=== PATIENT | female | born 1990 | race Caucasian/White ===

== ENCOUNTER → 2018-09-17 | Outpatient (CLI) | payer OTHER ==
--- NOTE | 2018-09-17 16:32 | CT ---
EXAMINATION TYPE: CT brain wo con DATE OF EXAM: 09/17/2018 COMPARISON: NONE HISTORY: Migraine for [address] DLP:1055 mGycm. Automated Exposure Control for Dose Reduction was Utilized. TECHNIQUE: CT scan of the head is performed without contrast. FINDINGS: There is no acute intracranial hemorrhage, mass effect, or midline shift identified. No suspicious extra-axial fluid collection. The ventricles and sulci are within normal limits in size. The globes are intact. There is near complete filling of the right sphenoid sinus and mild mucosal th ickening of the left sphenoid sinus. Moderate mucosal thickening of the ethmoid sinuses is seen with extent into the left frontal recess and trace frontal sinus mucosal thickening. Trace maxillary mucos al thickening is also noted. Visualized mastoid air cells are well aerated. IMPRESSION: 1. No acute intracranial hemorrhage, mass effect, or midline shift is seen. 2. Acute pansinusitis most severe within the right sphenoid sinus with near complete opacification.
== END | disposition home or self-care (01) ==
LOC: RADCTMAIN 16:02
PROVIDERS: ATTEND Family Medicine
DX: G43.909 Migraine, unspecified, not intractable, without status migrainosus (principal)
CPT/HCPCS: 70450

== ENCOUNTER → 2019-05-12 | Outpatient (CLI) | payer OTHER ==
--- NOTE | 2019-05-12 08:59 | XR ---
EXAMINATION TYPE: XR chest 2V DATE OF EXAM: 05/12/2019 COMPARISON: NONE HISTORY: Chest pain TECHNIQUE: Frontal and lateral views of the chest are obtained. FINDINGS: There is no focal air space opacity. No evidence for pneumothorax. No pleural effusion. The cardiac silhouette size is within normal limits. The osseous structures are grossly intact. IMPRESSION: 1. No acute cardiopulmonary process.
== END ==
LOC: RADXRMAIN 08:23
PROVIDERS: ATTEND Family Medicine
DX: J18.9 Pneumonia, unspecified organism (principal)
CPT/HCPCS: 71046

== ENCOUNTER → 2019-05-12 | Outpatient (CLI) | payer OTHER ==
--- NOTE | 2019-05-12 13:04 | CT ---
EXAMINATION TYPE: CT angio chest DATE OF EXAM: 05/12/2019 COMPARISON: NONE HISTORY: Chest and back pain with shortness of breath. CT DLP: 376 mGycm. Automated Exposure Control for Dose Reduction was Utilized. CONTRAST: CTA scan of the thorax is performed with IV Contrast, patient injected with 100 mL of Isovue 370, pul monary embolism protocol. MIP Images are created on CT scanner and reviewed. FINDINGS: LUNGS: The lungs are grossly clear, there is no concerning parenchymal mass or nodule identified. T here is no pleural effusion or pneumothorax seen. The tracheobronchial tree is patent. MEDIASTINUM: There is satisfactory enhancement of the pulmonary artery and its branches, there is no CT evidence for pulmonary embolism. There are no greater than 1 cm hilar or mediastinal lymph nodes. No cardiomegaly or pericardial effusion is seen. OTHER: No additional significant abnormality is seen. IMPRESSION: Unremarkable study.
== END | disposition home or self-care (01) ==
LOC: RADCTMAIN 12:19
PROVIDERS: ATTEND Family Medicine
DX: R07.89 Other chest pain (principal)
CPT/HCPCS: 71275; Q9967

== ENCOUNTER → 2019-12-25 | Outpatient (CLI) | payer OTHER ==
--- NOTE | 2019-12-25 08:15 | US ---
EXAMINATION TYPE: US thyroid st tissue head/neck DATE OF EXAM: 12/25/2019 COMPARISON: NONE CLINICAL HISTORY: E03.8 HYPOTHYROIDISM. abn labs, GLAND SIZE: Right Lobe: 3.5 x 1.1 x 1.6 cm Overall Parenchyma: homogenous Left Lobe: 3.7 x 0.8 x 1.3 cm Overall Parenchyma: homogeneous Isthmus Thickness: 0.3 cm NODULES RIGHT: # of nodules measured on right: 0 LEFT: # of nodules measured on left: 0 ISTHMUS: # of nodules measured in the isthmus: 0 Bilateral neck scanned, no evidence of lymphadenopathy. Thyroid echotexture is homogenous and symmetric IMPRESSION: Normal thyroid ultrasound
== END | disposition home or self-care (01) ==
LOC: RADUSWWP 07:02
PROVIDERS: ATTEND Internal Medicine Endocrinology, Diabetes & Metabolism
DX: E03.8 Other specified hypothyroidism (principal)
CPT/HCPCS: 76536

== ENCOUNTER → 2020-01-22 | Outpatient (CLI) | payer OTHER ==
[2020-01-22 17:01] LABS: T4, Free (Free Thyroxine) 0.9 ng/dL (0.80-1.80)
== END | disposition home or self-care (01) ==
LOC: LABWHC1 09:37
PROVIDERS: ATTEND Internal Medicine Endocrinology, Diabetes & Metabolism
DX: E03.8 Other specified hypothyroidism (principal)
CPT/HCPCS: 36415; 84439; 84443; 86376

== ENCOUNTER → 2020-02-26 | Outpatient (CLI) | payer OTHER ==
--- NOTE | 2020-02-26 11:03 | CT ---
EXAMINATION TYPE: CT sinus wo con DATE OF EXAM: 02/26/2020 COMPARISON: CT brain 09/17/2018 HISTORY: Chronic sinusitis CT DLP: 594 mGycm. Automated Exposure Control for Dose Reduction was Utilized. TECHNIQUE: CT scan of the sinuses is performed without contrast, axial images are obtained, coronal r eformatted images are also reviewed. FINDINGS: There is mucosal thickening of the bilateral maxillary sinuses. The bilateral ostiomeatal complexes a re occluded. There are several maxillary teeth with nerve roots within the floor of the maxillary sin uses bilaterally. There is mucosal thickening of the ethmoid air cells and sphenoid sinuses. There is foamy secretions within the right sphenoid sinus and left posterior ethmoid air cells. The bilateral sphenoid ostia ar e occluded. The bilateral frontoethmoidal recesses are occluded. There is mucosal thickening of the i nferior frontal sinuses bilaterally. There is leftward deviation of the nasal septum. There is narrowing of the left nasal passage. Visualized portion of mastoid air cells show no abnormal opacification. The globes are grossly symme tric bilaterally. IMPRESSION: 1. Diffuse paranasal sinus disease as above. Foamy mucosal thickening of the right sphenoid and left posterior ethmoid air cells may represent acute sinusitis.
== END | disposition home or self-care (01) ==
LOC: RADCTMAIN 08:09
PROVIDERS: ATTEND Otolaryngology Facial Plastic Surgery
DX: J32.2 Chronic ethmoidal sinusitis (principal); J32.4 Chronic pansinusitis
CPT/HCPCS: 70486

== ENCOUNTER 2024-04-29 17:20 | Emergency (ER) | payer OTHER ==
[2024-04-29 18:03] VITALS: RESP 18
--- NOTE | 2024-04-29 18:37 | ED ---
General Adult HPI - General Chief complaint: ENT Stated complaint: NV, congestion Time Seen by Provider: 04/29/24 18:07 Source: patient, RN notes reviewed Limitations: no limitations - History of Present Illness Initial comments: 34-year-old female presents to the emergency department for evaluation of throat foreign body sensation. Patient states that this started on Saturday. She reports that prior to this she had been vomiting very frequently for about 1 week. She notes that the vomiting continues. She states that she does not feel nauseous but this sensation in her throat causes her to vomit. She does report that she was ill with a GI bug followed by pneumonia. She has completed her course of antibiotics. She denies recent fever, chills. Denies any significant abdominal pain. - Related Data Previous Rx's Medication Instructions Recorded Mag Hydrox/Al Hydrox/Simeth 10 ml PO QID #100 ml 04/29/24 [Maalox] Pantoprazole [Protonix] 40 mg PO DAILY #30 tab 04/29/24 Allergies Allergy/AdvReac Type Severity Reaction Status Date / Time No Known Allergies Allergy Verified 04/29/24 17:59 Review of Systems ROS Statement: Those systems with pertinent positive or pertinent negative responses have been documented in the HPI. ROS Other: All systems not noted in ROS Statement are negative. Past Medical History Past Medical History: Pneumonia Additional Past Medical History / Comment(s): tachycardia on metoprolol Past Surgical History: Section, Tubal Ligation, Uterine Ablation Additional Past Surgical History / Comment(s): d&c, LEEP, sinus sx Smoking Status: Never smoker Past Alcohol Use History: None Reported Past Drug Use History: None Reported General Exam Limitations: no limitations General appearance: alert, in no apparent distress Head exam: Present: atraumatic, normocephalic, normal inspection Eye exam: Present: normal appearance, PERRL, EOMI. Absent: scleral icterus, conjunctival injection, periorbital swelling ENT exam: Present: normal exam, mucous membranes moist Neck exam: Present: normal inspection. Absent: tenderness, meningismus, lymphadenopathy Respiratory exam: Present: normal lung sounds bilaterally. Absent: respiratory distress, wheezes, rales, rhonchi, stridor Cardiovascular Exam: Present: regular rate, normal rhythm, normal heart sounds. Absent: systolic murmur, diastolic murmur, rubs, gallop, clicks GI/Abdominal exam: Present: soft. Absent: distended, tenderness, guarding, rebound, rigid Extremities exam: Present: normal inspection, full ROM, normal capillary refill. Absent: tenderness, pedal edema, joint swelling, calf tenderness Back exam: Present: normal inspection Neurological exam: Present: alert, oriented X3 Psychiatric exam: Present: normal affect, normal mood Skin exam: Present: warm, dry, intact, normal color. Absent: rash Course Vital Signs 04/29/24 04/29/24 18:00 20:18 Temperature 98.3 F 97.8 F Pulse Rate 82 71 Respiratory 18 18 Rate Blood Pressure 118/80 116/80 O2 Sat by Pulse 100 97 Oximetry Medical Decision Making - Medical Decision Making Was pt. sent in by a medical professional or institution (, PA, PHYSICAL EDUCATION INSTRUCTOR, urgent care, hospital, or care home...) When possible be specific @ -No Did you speak to anyone other than the patient for history (EMS, parent, family, police, friend...)? What history was obtained from this source @ -No Did you review nursing and triage notes (agree or disagree)? Why? @ -I reviewed and agree with nursing and triage notes Were old charts reviewed (outside hosp., previous admission, EMS record, old EKG, old radiological studies, urgent care reports/EKG's, care home records)? Report findings @ -No old charts were reviewed Differential Diagnosis (chest pain, altered mental status, abdominal pain women, abdominal pain men, vaginal bleeding, weakness, fever, dyspnea, syncope, headache, dizziness, GI bleed, back pain, seizure, CVA, palpatations, mental health, musculoskeletal)? @ -Esophageal foreign body, esophageal spasm, GERD, gastroenteritis, this list not all inclusive EKG interpreted by me (3pts min.). @ -None X-rays interpreted by me (1pt min.). @ -Soft tissue neck x-ray reveals no acute process CT interpreted by me (1pt min.). @ -None done U/S interpreted by me (1pt. min.). @ -None done What testing was considered but not performed or refused? (CT, X-rays, U/S, labs)? Why? @ -None What meds were considered but not given or refused? Why? @ -None Did you discuss the management of the patient with other professionals (professionals i.e. , PA, PHYSICAL EDUCATION INSTRUCTOR, lab, RT, psych nurse, social research assistant, credit control administrator, teacher, correctional probation officer, renal case manager)? Give summary @ -No Was smoking cessation discussed for >3mins.? @ -No Was critical care preformed (if so, how long)? @ -No Were there social determinants of health that impacted care today? How? (Homelessness, low income, unemployed, alcoholism, drug addiction, transportation, low edu. Level, literacy, decrease access to med. care, prison, rehab)? @ -No Was there de-escalation of care discussed even if they declined (Discuss DNR or withdrawal of care, Hospice)? DNR status @ -No What co-morbidities impacted this encounter? (DM, HTN, Smoking, COPD, CAD, Cancer, CVA, ARF, Chemo, Hep., AIDS, mental health diagnosis, sleep apnea, morbid obesity)? @ -None Was patient admitted / discharged? Hospital course, mention meds given and route , prescriptions, significant lab abnormalities, going to OR and other pertinent info. @ -Discharge. Patient presented to the emergency department for evaluation of foreign body sensation in her throat. She is tolerating oral intake. She does admit to frequent nausea and vomiting. The patient was provided a GI cocktail in the emergency department with relief of symptoms. Laboratory studies ob tained revealing no significant leukocytosis. Soft tissue neck x-ray shows no acute process. Patient will be discharged home. Advised to follow-up with her primary care provider. She is understanding agreeable with plan. Patient stable at time of discharge. Case discussed with Dr. Leyva. Undiagnosed new problem with uncertain prognosis? @ -No Drug Therapy requiring intensive monitoring for toxicity (Heparin, Nitro, Insulin, Cardizem)? @ -No Were any procedures done? @ -No Diagnosis/symptom? @ -Foreign body sensation in throat Acute, or Chronic, or Acute on Chronic? @ -Acute Uncomplicated (without systemic symptoms) or Complicated (systemic symptoms)? @ -d uncomplicated Side effects of treatment? @ -No Exacerbation, Progression, or Severe Exacerbation? @ -No Poses a threat to life or bodily function? How? (Chest pain, [place], [place], pneumonia, PE, COPD, DKA, ARF, appy, cholecystitis, CVA, Diverticulitis, Homicidal, Suicidal, threat to staff... and all critical care pts) @ -No - Lab Data Result diagrams: 04/29/24 18:45 04/29/24 18:45 Lab Results 04/29/24 04/29/24 04/29/24 Range/Units 18:45 18:45 18:45 WBC 5.7 (3.8-10.6) k/uL RBC 5.06 (3.80-5.40) m/uL Hgb 14.1 (11.4-16.0) gm/dL Hct 41.1 (34.0-46.0) % MCV 81.2 (80.0-100.0) fL MCH 27.9 (25.0-35.0) pg MCHC 34.3 (31.0-37.0) g/dL RDW 12.6 (11.5-15.5) % Plt Count 280 (150-450) k/uL MPV 7.4 Neutrophils % 33 % Lymphocytes % 53 % Monocytes % 6 % Eosinophils % 4 % Basophils % 1 % Neutrophils # 1.9 (1.3-7.7) k/uL Lymphocytes # 3.1 (1.0-4.8) k/uL Monocytes # 0.4 (0-1.0) k/uL Eosinophils # 0.2 (0-0.7) k/uL Basophils # 0.0 (0-0.2) k/uL Sodium 137 (137-145) mmol/L Potassium 3.6 (3.5-5.1) mmol/L Chloride 101 (98-107) mmol/L Carbon Dioxide 29 (22-30) mmol/L Anion Gap 7 mmol/L BUN 8 (7-17) mg/dL Creatinine 0.67 (0.52-1.04) mg/dL Est GFR (CKD-EPI)AfAm >90 (>60 ml/min/1.73 sqM) Est GFR (CKD-EPI)NonAf >90 (>60 ml/min/1.73 sqM) Glucose 90 (74-99) mg/dL Calcium 9.3 (8.4-10.2) mg/dL Magnesium 2.3 (1.6-2.3) mg/dL Total Bilirubin 0.7 (0.2-1.3) mg/dL AST 19 (14-36) U/L ALT 20 (4-34) U/L Alkaline Phosphatase 51 (38-126) U/L Total Protein 7.2 (6.3-8.2) g/dL Albumin 4.4 (3.5-5.0) g/dL Amylase 86 (30-110) U/L Lipase 243 (23-300) U/L TSH 1.100 (0.465-4.680) mIU/L Group A Strep (PCR) NOT DETECTED (Not Detectd) Disposition Clinical Impression: Foreign body sensation in throat, Nausea and vomiting Disposition: HOME SELF-CARE Condition: Stable Instructions (If sedation given, give patient instructions): Acute Nausea and Vomiting (ED) Additional Instructions: Please follow up with your primary care provider. Return to the emergency department for new or worsening symptoms. Prescriptions: Mag Hydrox/Al Hydrox/Simeth [Maalox] 10 ml PO QID #100 ml Pantoprazole [Protonix] 40 mg PO DAILY #30 tab Is patient prescribed a controlled substance at d/c from ED?: No Referrals: Jose Cruz Cronin DO [Primary Care Provider] - 1-2 days
[2024-04-29] MEDS: MAG HYDROX/AL HYDROX/SIMETH 30 ML, HYOSCYAMINE ELIXIR 10 ML, LIDOCAINE VISCOUS 2% 10 ML PO STA (18:54)
[2024-04-29] MEDS: SODIUM CHLORIDE 0.9% 1,000 ML IV ONE (18:54)
[2024-04-29 19:00] LABS: Basophils % (A) 1 %; Eosinophils # (A) 0.2 k/uL (0-0.7); Eosinophils % (A) 4 %; HCT 41.1 % (34.0-46.0); HGB 14.1 gm/dL (11.4-16.0); Lymphocytes # (A) 3.1 k/uL (1.0-4.8); Lymphocytes % (A) 53 %; MCH 27.9 pg (25.0-35.0); MCHC 34.3 g/dL (31.0-37.0); MCV 81.2 fL (80.0-100.0); Mean Platelet Volume 7.4; Monocytes # (A) 0.4 k/uL (0-1.0); Monocytes % (A) 6 %; Neutrophils # (A) 1.9 k/uL (1.3-7.7); Neutrophils % (A) 33 %; Platelet Count 280 k/uL (150-450); RBC 5.06 m/uL (3.80-5.40); RDW 12.6 % (11.5-15.5); WBC 5.7 k/uL (3.8-10.6)
[2024-04-29 19:10] LABS: ALT 20 U/L (4-34); AST 19 U/L (14-36); African American GFR (CKD) >90 (>60 ml/min/1.73 sqM); Albumin 4.4 g/dL (3.5-5.0); Alkaline Phosphatase 51 U/L (38-126); Amylase 86 U/L (30-110); Anion Gap 7 mmol/L; Blood Urea Nitrogen 8 mg/dL (7-17); Calcium 9.3 mg/dL (8.4-10.2); Carbon Dioxide 29 mmol/L (22-30); Chloride 101 mmol/L (98-107); Glucose 90 mg/dL (74-99); Lipase 243 U/L (23-300); Magnesium 2.3 mg/dL (1.6-2.3); Non-African American GFR(CKD) >90 (>60 ml/min/1.73 sqM); Potassium 3.6 mmol/L (3.5-5.1); Sodium 137 mmol/L (137-145); Total Bilirubin 0.7 mg/dL (0.2-1.3); Total Protein 7.2 g/dL (6.3-8.2)
--- NOTE | 2024-04-29 19:50 | XR ---
EXAMINATION TYPE: XR soft tissue neck DATE OF EXAM: 04/29/2024 7:09 PM COMPARISON: None CLINICAL INDICATION: Female, 34 years old with history of globus sensation ; [facility] TECHNIQUE: The soft tissues of the neck were imaged in frontal and lateral views. FINDINGS: The prevertebral soft tissues are unremarkable. There is no evidence of mass effect or trac heal deviation. No acute osseous abnormality demonstrated. No evidence of subglottic narrowing. IMPRESSION: 1. No significant abnormality identified within the soft tissues of the neck. 2. No radiopaque foreign bodies. [facility], , 04/29/2024 7:48 PM
[2024-04-29 20:19] VITALS: BP 116/80; PULSE 71; TEMP 97.8
== END 2024-04-29 20:20 | disposition home or self-care (01) ==
LOC: EC 17:20
DX: R09.A2 Foreign body sensation, throat (principal); R11.2 Nausea with vomiting, unspecified
CPT/HCPCS: 36415; 70360; 80053; 82150; 83690; 83735; 84443; 85025; 87651; 96360; 99284

== ENCOUNTER 2024-05-12 10:44 | Day surgery (SDC) | payer OTHER ==
[2024-05-11 08:30] VITALS: BMI 27.8
[2024-05-12] MEDS: IV FLUID CONTINUATION 1,000 ML IV ONE (12:20)
[2024-05-12 12:28] VITALS: TEMP 97
[2024-05-12] MEDS: LACTATED RINGERS 1,000 ML IV SCH (12:35)
[2024-05-12] MEDS ORDERED: fentaNYL (PF) 50 MCG/ML 2 ML AMP ONE (13:01)
[2024-05-12] MEDS ORDERED: PROPOFOL 10 MG/ML 20 ML VIAL IV ONE (13:01)
[2024-05-12] MEDS ORDERED: LIDOCAINE 2% (PF) 20 MG/ML 5 ML VIAL ONE (13:01)
--- NOTE | 2024-05-12 13:07 | P.PCN ---
Date of Procedure: 05/12/24 Procedure(s) Performed: BRIEF HISTORY: Patient is a 34-year-old, pleasant, white female as a part of evaluation of GERD and globus sensation in her throat area for the last several months duration. PROCEDURE PERFORMED: Esophagogastroduodenoscopy with biopsy. PREOPERATIVE DIAGNOSIS: GERD/globus sensation of throat area. IV sedation per anesthesia. PROCEDURE: After informed consent was obtained, the patient was brought into the endoscopy unit. IV sedation was administered by Anesthesia under continuous monitoring. Initially the Olympus GIF-140 video endoscope was inserted into the mouth. Esophagus intubated without any difficulty. It was gradually advanced into the stomach and duodenum and carefully examined. The bulb and the second part of the duodenum appeared normal. The scope at this time was withdrawn to the stomach, adequately insufflated with air, and upon careful examination, mucosa of the antrum, body, cardia and the fundus appeared normal. The scope was then withdrawn into the esophagus. The GE junction was located at 39 cm from the incisors. The esophagus appeared normal. There were no erosions or ulcerations seen, multiple biopsies were done from mid and distal esophagus and the patient tolerated the procedure well. IMPRESSION: 1. Normal-appearing esophagus with no evidence of esophagitis or esophageal stricture. 2. Stomach and duodenum appeared normal. RECOMMENDATIONS: The findings of this examination were discussed with the patient as well as her family.. Advised to follow with the biopsy results. Continue with Protonix 40 mg daily and follow antireflux measures.
[2024-05-12 13:17] VITALS: RESP 14
[2024-05-12 13:37] VITALS: BP 115/70; PULSE 86
== END 2024-05-12 13:58 | disposition home or self-care (01) ==
LOC: ORWHC2ENDO 10:44
PROVIDERS: ATTEND Internal Medicine Gastroenterology
DX: K21.00 Gastro-esophageal reflux disease with esophagitis, without bleeding (principal); R09.89 Other specified symptoms and signs involving the circulatory and respiratory systems; R00.0 Tachycardia, unspecified; F41.9 Anxiety disorder, unspecified; F32.A Depression, unspecified; J45.909 Unspecified asthma, uncomplicated; E03.9 Hypothyroidism, unspecified; Z79.899 Other long term (current) drug therapy; Z79.51 Long term (current) use of inhaled steroids; Z79.890 Hormone replacement therapy; Z98.51 Tubal ligation status; Z98.890 Other specified postprocedural states
CPT/HCPCS: 81025; 88305; 43239; J3010; J2704; J2003

== ENCOUNTER 2024-07-01 18:41 | Inpatient (IN) | payer OTHER ==
--- NOTE | 2024-07-01 19:22 | ED ---
Abdominal Pain HPI - General Chief Complaint: Abdominal Pain Stated Complaint: stomach and back pain Time Seen by Provider: 07/01/24 19:00 Source: patient, RN notes reviewed Mode of arrival: ambulatory Limitations: no limitations - History of Present Illness Initial Comments: Patient is a 34 year old female who presents for abdominal pain and back pain x 1 day. She states that the pain is in the center of her stomach and radiates to her back. She states the pain is sharp and a 10/10, and is constant. She states she has felt nauseous but had not vomited until arriving at the ED. She also endorses shortness of breath and "rib pain". She states that she has an appetite and is able to keep most food down. She notes that she recently had a "scope" do ne as this is an ongoing issue, and she was diagnosed with GERD, but she has tried multiple medications without relief. She states that she has had multiple c sections and an ablation, but her menstrual cycle is slowly coming back, her last menstrual period being on 06/24/24. She denies fever,cough, chest pain, diarrhea, urinary changes, hematemesis, hematochezia or melena. - Related Data Home Medications Medication Instructions Recorded Confirmed Albuterol Inhaler [Ventolin Hfa 60 puff INHALATION BID PRN 05/11/24 06/29/24 Inhaler] Budesonide [Pulmicort] 0.25 mg INHALATION BID 05/11/24 06/29/24 Levothyroxine Sodium [Tirosint] 50 mcg PO QAM 05/11/24 06/29/24 Pantoprazole [Protonix] 40 mg PO QAM 06/29/24 06/29/24 Allergies Allergy/AdvReac Type Severity Reaction Status Date / Time No Known Allergies Allergy Verified 07/01/24 19:01 Review of Systems ROS Statement: Those systems with pertinent positive or pertinent negative responses have been documented in the HPI. ROS Other: All systems not noted in ROS Statement are negative. Past Medical History Past Medical History: Asthma, GERD/Reflux, Pneumonia, Thyroid Disorder Additional Past Medical History / Comment(s): See Dr. Patel's H+P. Hx tachycardia was taking metoprolol-not at this time. History of Any Multi-Drug Resistant Organisms: None Reported Past Surgical History: Section, Tubal Ligation, Uterine Ablation Additional Past Surgical History / Comment(s): d&c, LEEP, sinus sx, EGD. Past Anesthesia/Blood Transfusion Reactions: No Reported Reaction, Postoperative Nausea & Vomiting (PONV) Additional Past Anesthesia/Blood Transfusion Reaction / Comment(s): No hx of blood transfusion to date. Past Psychological History: Anxiety, Depression Smoking Status: Never smoker Past Alcohol Use History: None Reported Past Drug Use History: None Reported - Past Family History Mother Family Medical History: No Reported History General Exam Limitations: no limitations General appearance: alert, anxious, in distress ENT exam: Present: normal exam, mucous membranes moist Respiratory exam: Present: normal lung sounds bilaterally. Absent: respiratory distress, wheezes, rales, rhonchi, stridor Cardiovascular Exam: Present: regular rate, normal rhythm, normal heart sounds. Absent: systolic murmur, diastolic murmur, rubs, gallop, clicks GI/Abdominal exam: Present: tenderness (epigastric, RLQ) Neurological exam: Present: alert, oriented X3, CN II-XII intact Skin exam: Present: warm, dry, intact, normal color. Absent: rash Course Vital Signs 07/01/24 18:58 Temperature 98.2 F Pulse Rate 68 Respiratory 14 Rate Blood Pressure 117/81 O2 Sat by Pulse 100 Oximetry Medical Decision Making - Medical Decision Making Was pt. sent in by a medical professional or institution (, PA, SPECIAL EDUCATION PARA PROFESSIONAL, urgent ca re, hospital, or [facility]cf...) When possible be specific @ -No Did you speak to anyone other than the patient for history (EMS, parent, family, police, friend...)? What history was obtained from this source @ -No Did you review nursing and triage notes (agree or disagree)? Why? @ -I reviewed and agree with nursing and triage notes Were old charts reviewed (outside hosp., previous admission, EMS record, old EKG, old radiological studies, urgent care reports/EKG's, [facility] records)? Report findings @ -Reviewed EGD by Dr. Fagan Differential Diagnosis (chest pain, altered mental status, abdominal pain women, abdominal pain men, vaginal bleeding, weakness, fever, dyspnea, syncope, heada tootie, dizziness, GI bleed, back pain, seizure, CVA, palpatations, mental health, musculoskeletal)? @Differential Abdominal Pain Women: Appendicitis, Cholecystitis, diverticulosis, ischemic bowel, pancreatitis, hepatitis, UTI, gastroenteritis, AAA, incarcerated hernia, bowel obstruction, constipation, inflammatory bowel, hepatitis, peptic ulcer disease, splenic infarction, perforated viscus, vulvitis, ovarian torsion, PID, kidney stone, placenta abruption, this is not meant to be an all-inclusive list EKG interpreted by me (3pts min.). @ -As above X-rays interpreted by me (1pt min.). @ -None done CT interpreted by me (1pt min.). @ -None done U/S interpreted by me (1pt. min.). @ -ultrasound showing gallbladder showing evidence of cholelithiasis and cholecystitis What testing was considered but not performed or refused? (CT, X-rays, U/S, labs)? Why? @ -None What meds were considered but not given or refused? Why? @ -None Did you discuss the management of the patient with other professionals (professionals i.e. , PA, SPECIAL EDUCATION PARA PROFESSIONAL, lab, RT, psych nurse, director social service, equipment engineer, teacher, customer service officer, manager case)? Give summary @ -[Dr. Vaughn for admission Was smoking cessation discussed for >3mins.? @ -No Was critical care preformed (if so, how long)? @ -No Were there social determinants of health that impacted care today? How? (Homelessness, low income, unemployed, alcoholism, drug addiction, transportation, low edu. Level, literacy, decrease access to med. care, detention, rehab)? @ -No Was there de-escalation of care discussed even if they declined (Discuss DNR or withdrawal of care, Hospice)? DNR status @ -No What co-morbidities impacted this encounter? (DM, HTN, Smoking, COPD, CAD, Cancer, CVA, ARF, Chemo, Hep., AIDS, mental health diagnosis, sleep apnea, morbid obesity)? @ -None Was patient admitted / discharged? Hospital course, mention meds given and route, prescriptions, significant lab abnormalities, going to OR and other pertinent info. @ -Admitted patient's found to have acute cholecystitis with cholelithiasis. Patient been having worsening symptoms. Patient does have mildly thickened gallbladder wall, no fluid collection noted, patient was started on Zosyn will have clear liquid diet n.p.o. at lunch tomorrow. Undiagnosed new problem with uncertain prognosis? @ -No Drug Therapy requiring intensive monitoring for toxicity (Heparin, Nitro, Insulin, Cardizem)? @ -No Were any procedures done? @ -No Diagnosis/symptom? @ -Acute cholecystitis with cholelithiasis Acute, or Chronic, or Acute on Chronic? @ -Acute Uncomplicated (without systemic symptoms) or Complicated (systemic symptoms)? @ -Complicated Side effects of treatment? @ -No Exacerbation, Progression, or Severe Exacerbation? @ -No Poses a threat to life or bodily function? How? (Chest pain, [place], [place], pneumonia, PE, COPD, DKA, ARF, appy, cholecystitis, CVA, Diverticulitis, Homicidal, Suicidal, threat to staff... and all critical care pts) @ -Yes surgical risk - Lab Data Result diagrams: 07/01/24 19:34 07/01/24 19:34 Lab Results 07/01/24 07/01/24 07/01/24 Range/Units 19:34 19:34 19:34 WBC 11.2 H (3.8-10.6) k/uL RBC 4.68 (3.80-5.40) m/uL Hgb 13.4 (11.4-16.0) gm/dL Hct 38.9 (34.0-46.0) % MCV 83.2 (80.0-100.0) fL MCH 28.6 (25.0-35.0) pg MCHC 34.4 (31.0-37.0) g/dL RDW 13.2 (11.5-15.5) % Plt Count 273 (150-450) k/uL MPV 7.0 Neutrophils % 78 % Lymphocytes % 15 % Monocytes % 4 % Eosinophils % 1 % Basophils % 0 % Neutrophils # 8.8 H (1.3-7.7) k/uL Lymphocytes # 1.7 (1.0-4.8) k/uL Monocytes # 0.4 (0-1.0) k/uL Eosinophils # 0.1 (0-0.7) k/uL Basophils # 0.0 (0-0.2) k/uL Sodium (137-145) mmol/L Potassium (3.5-5.1) mmol/L Chloride (98-107) mmol/L Carbon Dioxide (22-30) mmol/L Anion Gap mmol/L BUN (7-17) mg/dL Creatinine (0.52-1.04) mg/dL Est GFR (CKD-EPI)AfAm (>60 ml/min/1.73 sqM) Est GFR (CKD-EPI)NonAf (>60 ml/min/1.73 sqM) Glucose (74-99) mg/dL Plasma Lactic Acid Franklin (0.7-2.0) mmol/L Calcium (8.4-10.2) mg/dL Total Bilirubin (0.2-1.3) mg/dL AST (14-36) U/L ALT (4-34) U/L Alkaline Phosphatase (38-126) U/L Total Protein (6.3-8.2) g/dL Albumin (3.5-5.0) g/dL Lipase (23-300) U/L Urine Color Yellow Urine Appearance Cloudy H (Clear) Urine pH 5.5 (5.0-8.0) Ur Specific Garner 1.030 (1.001-1.035) Urine Protein Trace H (Negative) Urine Glucose (UA) Negative (Negative) Urine Ketones Negative (Negative) Urine Blood Moderate H (Negative) Urine Nitrite Negative (Negative) Urine Bilirubin Negative (Negative) Urine Urobilinogen 3.0 (<2.0) mg/dL Ur Leukocyte Esterase Small H (Negative) Urine RBC 3 (0-5) /hpf Urine WBC 1 (0-5) /hpf Ur Squamous Epith Cells 16 H (0-4) /hpf Urine Bacteria Rare H (None) /hpf Urine Mucus Moderate H (None) /hpf Urine HCG, Qual Not Detected (Not Detectd) Influenza Type A (PCR) (Not Detectd) Influenza Type B (PCR) (Not Detectd) RSV (PCR) (Not Detectd) SARS-CoV-2 (PCR) (Not Detectd) 07/01/24 07/01/24 07/01/24 Range/Units 19:34 19:34 19:34 WBC (3.8-10.6) k/uL RBC (3.80-5.40) m/uL Hgb (11.4-16.0) gm/dL Hct (34.0-46.0) % MCV (80.0-100.0) fL MCH (25.0-35.0) pg MCHC (31.0-37.0) g/dL RDW (11.5-15.5) % Plt Count (150-450) k/uL MPV Neutrophils % % Lymphocytes % % Monocytes % % Eosinophils % % Basophils % % Neutrophils # (1.3-7.7) k/uL Lymphocytes # (1.0-4.8) k/uL Monocytes # (0-1.0) k/uL Eosinophils # (0-0.7) k/uL Basophils # (0-0.2) k/uL Sodium 142 (137-145) mmol/L Potassium 3.8 (3.5-5.1) mmol/L Chloride 105 (98-107) mmol/L Carbon Dioxide 27 (22-30) mmol/L Anion Gap 10 mmol/L BUN 9 (7-17) mg/dL Creatinine 0.72 (0.52-1.04) mg/dL Est GFR (CKD-EPI)AfAm >90 (>60 ml/min/1.73 sqM) Est GFR (CKD-EPI)NonAf >90 (>60 ml/min/1.73 sqM) Glucose 115 H (74-99) mg/dL Plasma Lactic Acid Franklin 1.5 (0.7-2.0) mmol/L Calcium 10.0 (8.4-10.2) mg/dL Total Bilirubin 0.8 (0.2-1.3) mg/dL AST 157 H (14-36) U/L ALT 57 H (4-34) U/L Alkaline Phosphatase 60 (38-126) U/L Total Protein 7.5 (6.3-8.2) g/dL Albumin 4.9 (3.5-5.0) g/dL Lipase 160 (23-300) U/L Urine Color Urine Appearance (Clear) Urine pH (5.0-8.0) Ur Specific Garner (1.001-1.035) Urine Protein (Negative) Urine Glucose (UA) (Negative) Urine Ketones (Negative) Urine Blood (Negative) Urine Nitrite (Negative) Urine Bilirubin (Negative) Urine Urobilinogen (<2.0) mg/dL Ur Leukocyte Esterase (Negative) Urine RBC (0-5) /hpf Urine WBC (0-5) /hpf Ur Squamous Epith Cells (0-4) /hpf Urine Bacteria (None) /hpf Urine Mucus (None) /hpf Urine HCG, Qual (Not Detectd) Influenza Type A (PCR) Not Detected (Not Detectd) Influenza Type B (PCR) Not Detected (Not Detectd) RSV (PCR) Not Detected (Not Detectd) SARS-CoV-2 (PCR) Not Detected (Not Detectd) - EKG Data -: EKG Interpreted by Me EKG Comments: EKG performed at 2136 sinus rhythm with a rate of 68 UT 132 QRS 90 QT/QTc 368/385 Disposition Clinical Impression: Cholecystitis, acute with cholelithiasis Disposition: ADMITTED IP TO THIS HOSP Condition: Fair Time of Disposition: 22:08
[2024-07-01] MEDS: SODIUM CHLORIDE 0.9% 1,000 ML IV STA (19:56)
[2024-07-01] MEDS: ONDANSETRON 4 MG/2 ML VIAL IVP STA (19:57)
[2024-07-01] MEDS: FAMOTIDINE 20 MG/2 ML VIAL IV STA (19:58)
[2024-07-01 20:00] LABS: Basophils % (A) 0 %; Eosinophils # (A) 0.1 k/uL (0-0.7); Eosinophils % (A) 1 %; HCT 38.9 % (34.0-46.0); HGB 13.4 gm/dL (11.4-16.0); Lymphocytes # (A) 1.7 k/uL (1.0-4.8); Lymphocytes % (A) 15 %; MCH 28.6 pg (25.0-35.0); MCHC 34.4 g/dL (31.0-37.0); MCV 83.2 fL (80.0-100.0); Monocytes # (A) 0.4 k/uL (0-1.0); Monocytes % (A) 4 %; Neutrophils # (A) 8.8 k/uL (1.3-7.7); Neutrophils % (A) 78 %; Platelet Count 273 k/uL (150-450); RBC 4.68 m/uL (3.80-5.40); RDW 13.2 % (11.5-15.5); WBC 11.2 k/uL (3.8-10.6)
[2024-07-01 20:11] LABS: Appearance,Urine Cloudy (Clear); Bacteria,Urine Rare /hpf; Bilirubin,Urine Negative (Negative); Blood,Urine Moderate (Negative); Color,Urine Yellow; Glucose,Urine (UA) Negative (Negative); Ketones,Urine Negative (Negative); Leukocyte Esterase,Urine Small (Negative); Mucus,Urine Moderate /hpf; Nitrite,Urine Negative (Negative); PH, Urine 5.5 (5.0-8.0); Protein,Urine Trace (Negative); RBC,Urine 3 /hpf (0-5); Squamous Epithelial Cell,Urine 16 /hpf (0-4); WBC,Urine 1 /hpf (0-5)
[2024-07-01 20:14] LABS: ALT 57 U/L (4-34); AST 157 U/L (14-36); African American GFR (CKD) >90 (>60 ml/min/1.73 sqM); Albumin 4.9 g/dL (3.5-5.0); Alkaline Phosphatase 60 U/L (38-126); Anion Gap 10 mmol/L; Blood Urea Nitrogen 9 mg/dL (7-17); Carbon Dioxide 27 mmol/L (22-30); Chloride 105 mmol/L (98-107); Glucose 115 mg/dL (74-99); Lipase 160 U/L (23-300); Non-African American GFR(CKD) >90 (>60 ml/min/1.73 sqM); Potassium 3.8 mmol/L (3.5-5.1); Sodium 142 mmol/L (137-145); Total Bilirubin 0.8 mg/dL (0.2-1.3); Total Protein 7.5 g/dL (6.3-8.2)
[2024-07-01] MEDS: LIDOCAINE VISCOUS 2% 15 ML CUP PO ONE (20:58)
[2024-07-01] MEDS: MAG HYDROX/AL HYDROX/SIMETH 30 ML CUP PO STA (20:59)
--- NOTE | 2024-07-01 21:43 | US ---
EXAMINATION TYPE: US gallbladder DATE OF EXAM: 07/01/2024 COMPARISON: NONE CLINICAL INDICATION: Female, 34 years old with history of pain; Patient states abd pain "episodes" th at come and go. TECHNIQUE: Grayscale and color Doppler imaging of the right upper quadrant was performed. FINDINGS: EXAM MEASUREMENTS: Liver Length: 16.0 cm Gallbladder Wall: 0.3 cm CBD: 0.7 cm Right Kidney: 9.0 x 4.0 x 4.4 cm MANAGER LAB NOTES:Slightly limited due to overlying bowel Pancreas: head wnl as best seen, body/tail obscured by gas Liver: Increased attenuation Gallbladder: Echogenic foci seen. Measuring up to 12cm in length. Wall upper limits of normal. Evidence for sonographic Morocho's sign: No CBD: Minimally Dilated consider short-term follow-up. Right Kidney: wnl IMPRESSION: Suspect small gallstone without ultrasound evidence for acute cholecystitis [facility] Valeri Simons, , 07/01/2024 9:40 PM
[2024-07-01] MEDS ORDERED: NALOXONE 0.4 MG/ML 1 ML VIAL IV PRN (22:06)
[2024-07-01] MEDS: HYDROmorphone 0.5 MG/0.5 ML SYRINGE IVP STA (22:46)
[2024-07-01] MEDS: SODIUM CHLORIDE 0.9% 1,000 ML IV SCH (22:51)
[2024-07-01] MEDS: SCOPOLAMINE 1 MG/72 HR PATCH TRANSDERM SCH (22:52)
[2024-07-01] MEDS: PIPERACILLIN-TAZOBACTAM 3.375 GM in SODIUM CHLORIDE 0.9% 100 ML IVPB SCH (23:33)
[2024-07-02] MEDS: KETOROLAC 15 MG/ML 1 ML VIAL IVP SCH ×2 (00:51→22:19)
[2024-07-02] MEDS: ONDANSETRON 4 MG/2 ML VIAL IVP PRN (06:23)
[2024-07-02] MEDS: HYDROmorphone 1 MG/ML 1 ML SYRINGE IVP PRN (06:24)
[2024-07-02 08:18] LABS: Basophils % (A) 1 %; Eosinophils # (A) 0.1 k/uL (0-0.7); Eosinophils % (A) 3 %; HCT 34.3 % (34.0-46.0); HGB 11.7 gm/dL (11.4-16.0); Lymphocytes # (A) 1.5 k/uL (1.0-4.8); Lymphocytes % (A) 35 %; MCH 28.5 pg (25.0-35.0); MCV 83.7 fL (80.0-100.0); Monocytes # (A) 0.2 k/uL (0-1.0); Monocytes % (A) 6 %; Neutrophils # (A) 2.4 k/uL (1.3-7.7); Neutrophils % (A) 55 %; Platelet Count 216 k/uL (150-450); RDW 13.2 % (11.5-15.5); WBC 4.3 k/uL (3.8-10.6)
[2024-07-02 08:37] LABS: ALT 415 U/L (4-34); AST 598 U/L (14-36); African American GFR (CKD) >90 (>60 ml/min/1.73 sqM); Albumin 3.6 g/dL (3.5-5.0); Albumin/Globulin Ratio 1.7; Alkaline Phosphatase 55 U/L (38-126); Anion Gap 3 mmol/L; Blood Urea Nitrogen 9 mg/dL (7-17); Calcium 9.3 mg/dL (8.4-10.2); Carbon Dioxide 31 mmol/L (22-30); Chloride 107 mmol/L (98-107); Globulin 2.1 g/dL; Glucose 98 mg/dL (74-99); Non-African American GFR(CKD) >90 (>60 ml/min/1.73 sqM); Potassium 3.6 mmol/L (3.5-5.1); Sodium 141 mmol/L (137-145); Total Bilirubin 2.6 mg/dL (0.2-1.3); Total Protein 5.7 g/dL (6.3-8.2)
[2024-07-02] MEDS: HYDROmorphone 0.5 MG/0.5 ML SYRINGE IVP PRN (09:15)
[2024-07-02 11:21] LABS: INR 1.1 (<1.2); Prothrombin Time 11.8 sec (10.0-12.5)
--- NOTE | 2024-07-02 11:25 | P.GSHP ---
History of Present Illness H&P Date: 07/02/24 CHIEF COMPLAINT: Cholecystitis HISTORY OF PRESENT ILLNESS: The patient is a 34-year-old female who presents to the hospital after developing acute onset epigastric and right upper quadrant abdominal pain rating to her back from last night. Patient reports a strong family history of gallbladder disease including her mother with gallbladder removal. Incidentally, past 6 months patient did have intractable nausea and vomiting and had upper endoscopy which demonstrated no acute findings. She was placed on multiple and NSAIDs without any improvement of her symptoms with Pepcid including Protonix high-dose 40 mg twice daily. Patient since then has had chronic attacks in severity involving the upper chest. Presented with leukocytosis including newly diagnosed gallstones since her admission. Family is at bedside. PAST MEDICAL HISTORY: Please see list PAST SURGICAL HISTORY: Please see list MEDICATIONS: Please see list ALLERGIES: Please see list SOCIAL HISTORY: Please see list FAMILY HISTORY: Please see list REVIEW OF ORGAN SYSTEMS: CONSTITUTIONAL: No reports of fevers or chills. HEENT: Denies any troubles with the vision or hearing. ENDOCRINE: No reports of hypothyroidism. No diabetes. RESPIRATORY: No recent pneumonias. CARDIOVASCULAR: History of tachycardia. Patient was scheduled to undergo tilt table test today with Dr. Patel GI: No blood in stools or constipation. Reports gastroesophageal reflux disease. MUSCULOSKELETAL: Has occasional joint pain including back pain. NEURO: No seizure disorders or headaches. No recent stroke. PSYCH: No depression or suicidal ideation. GENITOURINARY: No active blood in urine. No urinary hesitancy. HEMATOLOGIC: No personal or family history of DVTs or pulmonary emboli. SKIN: No skin cancer. PHYSICAL EXAM: VITAL SIGNS: Afebrile vital signs stable GENERAL: Well-developed pleasant in no acute distress. HEENT: No scleral icterus. Extraocular movements grossly intact. Moist buccal mucosa. NECK: Supple without lymphadenopathy. CHEST: Unlabored respirations. Equal bilateral excursions. CARDIOVASCULAR: Regular rate regular rhythm rhythm. Distal 2+ pulses. ABDOMEN: Soft, nondistended. Tender along the epigastrium and right upper quadrant. MUSCULOSKELETAL: No clubbing, cyanosis, or edema. NEURO: Cranial nerves II to XII within normal limits. No focal or lateralizing signs. PSYCH: Alert and oriented to person, place and time. SKIN: Well-perfused good skin turgor. LABS: WBC elevated over 11,000 on admission. Repeat CBC normal. On admission total bilirubin 0.8 now elevated 2.6. LFTs elevated AST ALT 157 and 57 respectively. This morning, AST elevated 598 and ALT elevated 57, almost 10 lesa es elevation for ALT and 4 times elevation for AST. Alkaline phosphatase within normal limits. STUDIES: Ultrasound of the gallbladder independent reviewed demonstrates multiple gallstones between 7 to 8 mm. Mild gallbladder wall thickening. This is my independent or potation. REPORT: Ultrasound gallbladder report demonstrates dilated common bile duct of 7 mm. Small gallstones identified. ASSESSMENT: 1. Epigastric and right upper quadrant abdominal pain, present on admission 2. Acute cholecystitis, present on admission 3. New acute choledocholithiasis 4. Gastroesophageal reflux disease, uncontrolled. PLAN: 1. Will need a robotic cholecystectomy possible open. Benefits and risks were described. 2. Heparin for DVT prophylaxis 5000 units. 3. Antibiotic prophylaxis. 4. CBC and CMP on day of procedure performed 5. Non-narcotic pre and post op pain management reviewed. 6. Indocyanine green for biliary imaging. 7. GI consultation was performed and I directly spoke with GI team regarding need for ERCP due to acute elevation of LFTs and total bilirubin with high likel ihood of choledocholithiasis. Coordination of care includes cholecystectomy and ERCP described to patient. 8. Patient is elevated risk for complications due to acute choledocholithiasis including in a presence of acute cholecystitis 9. Full inpatient admission described due to acute cholecystitis with acute choledocholithiasis Past Medical History Past Medical History: Asthma, GERD/Reflux, Pneumonia, Thyroid Disorder Additional Past Medical History / Comment(s): See Dr. Patel's H+P. Hx tachycardia was taking metoprolol-not at this time. History of Any Multi-Drug Resistant Organisms: None Reported Past Surgical History: Section, Tubal Ligation, Uterine Ablation Additional Past Surgical History / Comment(s): d&c, LEEP, sinus sx, EGD. Past Anesthesia/Blood Transfusion Reactions: No Reported Reaction, Postoperative Nausea & Vomiting (PONV) Additional Past Anesthesia/Blood Transfusion Reaction / Comment(s): No hx of blood transfusion to date. Past Psychological History: Anxiety, Depression Smoking Status: Never smoker Past Alcohol Use History: None Reported Past Drug Use History: None Reported - Past Family History Mother Family Medical History: No Reported History Medications and Allergies Home Medications Medication Instructions Recorded Confirmed Type Albuterol Inhaler [Ventolin Hfa 2 puff INHALATION RT-QID PRN 05/11/24 07/02/24 History Inhaler] Levothyroxine Sodium [Tirosint] 50 mcg PO QAM 05/11/24 07/02/24 History Pantoprazole [Protonix] 40 mg PO BID 06/29/24 07/02/24 History Famotidine [Pepcid] 40 mg PO HS 07/02/24 07/02/24 History Pulmicort Flexhaler 2 puff INHALATION RT-BID 07/02/24 07/02/24 History busPIRone HCL 10 mg PO DIRECTED 07/02/24 07/02/24 History Allergies Allergy/AdvReac Type Severity Reaction Status Date / Time No Known Allergies Allergy Verified 07/02/24 08:05 Surgical - Exam Vital Signs Temp Pulse Resp BP Pulse Ox 98.2 F 68 14 117/81 100 07/01/24 18:58 07/01/24 18:58 07/01/24 18:58 07/01/24 18:58 07/01/24 18:58 Results - Labs 07/02/24 08:01 07/02/24 08:01 Abnormal Lab Results - Last 24 Hours (Table) 07/01/24 07/01/24 07/01/24 Range/Units 19:34 19:34 19:34 WBC 11.2 H (3.8-10.6) k/uL Neutrophils # 8.8 H (1.3-7.7) k/uL Carbon Dioxide (22-30) mmol/L Glucose 115 H (74-99) mg/dL Total Bilirubin (0.2-1.3) mg/dL AST 157 H (14-36) U/L ALT 57 H (4-34) U/L Total Protein (6.3-8.2) g/dL Urine Appearance Cloudy H (Clear) Urine Protein Trace H (Negative) Urine Blood Moderate H (Negative) Ur Leukocyte Esterase Small H (Negative) Ur Squamous Epith Cells 16 H (0-4) /hpf Urine Bacteria Rare H (None) /hpf Urine Mucus Moderate H (None) /hpf 07/02/24 Range/Units 08:01 WBC (3.8-10.6) k/uL Neutrophils # (1.3-7.7) k/uL Carbon Dioxide 31 H (22-30) mmol/L Glucose (74-99) mg/dL Total Bilirubin 2.6 H (0.2-1.3) mg/dL AST 598 H (14-36) U/L ALT 415 H (4-34) U/L Total Protein 5.7 L (6.3-8.2) g/dL Urine Appearance (Clear) Urine Protein (Negative) Urine Blood (Negative) Ur Leukocyte Esterase (Negative) Ur Squamous Epith Cells (0-4) /hpf Urine Bacteria (None) /hpf Urine Mucus (None) /hpf Diabetes panel 07/01/24 07/02/24 Range/Units 19:34 08:01 Sodium 142 141 (137-145) mmol/L Potassium 3.8 3.6 (3.5-5.1) mmol/L Chloride 105 107 (98-107) mmol/L Carbon Dioxide 27 31 H (22-30) mmol/L BUN 9 9 (7-17) mg/dL Creatinine 0.72 0.68 (0.52-1.04) mg/dL Glucose 115 H 98 (74-99) mg/dL Calcium 10.0 9.3 (8.4-10.2) mg/dL AST 157 H 598 H (14-36) U/L ALT 57 H 415 H (4-34) U/L Alkaline Phosphatase 60 55 (38-126) U/L Total Protein 7.5 5.7 L (6.3-8.2) g/dL Albumin 4.9 3.6 (3.5-5.0) g/dL Calcium panel 07/01/24 07/02/24 Range/Units 19:34 08:01 Calcium 10.0 9.3 (8.4-10.2) mg/dL Albumin 4.9 3.6 (3.5-5.0) g/dL Pituitary panel 07/01/24 07/02/24 Range/Units 19:34 08:01 Sodium 142 141 (137-145) mmol/L Potassium 3.8 3.6 (3.5-5.1) mmol/L Chloride 105 107 (98-107) mmol/L Carbon Dioxide 27 31 H (22-30) mmol/L BUN 9 9 (7-17) mg/dL Creatinine 0.72 0.68 (0.52-1.04) mg/dL Glucose 115 H 98 (74-99) mg/dL Calcium 10.0 9.3 (8.4-10.2) mg/dL Adrenal panel 07/01/24 07/02/24 Range/Units 19:34 08:01 Sodium 142 141 (137-145) mmol/L Potassium 3.8 3.6 (3.5-5.1) mmol/L Chloride 105 107 (98-107) mmol/L Carbon Dioxide 27 31 H (22-30) mmol/L BUN 9 9 (7-17) mg/dL Creatinine 0.72 0.68 (0.52-1.04) mg/dL Glucose 115 H 98 (74-99) mg/dL Calcium 10.0 9.3 (8.4-10.2) mg/dL Total Bilirubin 0.8 2.6 H (0.2-1.3) mg/dL AST 157 H 598 H (14-36) U/L ALT 57 H 415 H (4-34) U/L Alkaline Phosphatase 60 55 (38-126) U/L Total Protein 7.5 5.7 L (6.3-8.2) g/dL Albumin 4.9 3.6 (3.5-5.0) g/dL
--- NOTE | 2024-07-02 12:16 | P.CONS ---
History of Present Illness - Reason for Consult Consult date: 07/02/24 ERCP Requesting physician: Meagan Vaughn - Chief Complaint Abdominal pain - History of Present Illness This a pleasant 34-year-old female who presented to the emergency department yesterday with complaints of abdominal pain radiating into her back x 1 to 2 days. Pain is mostly in the center of her abdomen radiates around her side and into her back. She has had some nausea but no vomiting. Pain remains at 6 even with pain medications on board. When she presented she had a ultrasound of the gallbladder showing multiple gallstones and mild CBD dilation. Initially she had mild elevation of her AST and ALT but no elevation in her bilirubin or alkaline phosphatase. Repeat labs today she had increase in bilirubin as well as LFTs and alkaline phosphatase. Gastroenterology was consulted for further evaluation possible choledochal lithiasis with request of ERCP from general surgery. Patient was tentatively scheduled for surgery today. Review of Systems REVIEW OF SYSTEMS: CARDIOPULMONARY: No chest pain or shortness of breath. Gastrointestinal: Abdominal pain. Nausea without vomiting. No hematemesis, coffee-ground emesis. No rectal bleeding, or melena. GENITOURINARY: No dysuria or hematuria. MUSCULOSKELETAL: Reports normal range of motion., Joint pain. SKIN: No rashes. No jaundice. ENDOCRINE: No chills, fevers. No excessive weight gain or loss. No polydipsia or polyuria. PSYCHIATRIC: Unremarkable. NEUROLOGY: No change in mental status. Denies dizziness, headache. ENT: Vision unremarkable. CONSTITUTIONAL: No recent weight loss. No fever, chills, night sweats. Past Medical History Past Medical History: Asthma, GERD/Reflux, Pneumonia, Thyroid Disorder Additional Past Medical History / Comment(s): See Dr. Patel's H+P. Hx tachycardia was taking metoprolol-not at this time. History of Any Multi-Drug Resistant Organisms: None Reported Past Surgical History: Section, Tubal Ligation, Uterine Ablation Additional Past Surgical History / Comment(s): d&c, LEEP, sinus sx, EGD. Past Anesthesia/Blood Transfusion Reactions: No Reported Reaction, Postoperative Nausea & Vomiting (PONV) Additional Past Anesthesia/Blood Transfusion Reaction / Comm: No hx of blood transfusion to date. Past Psychological History: Anxiety, Depression Smoking Status: Never smoker Past Alcohol Use History: None Reported Past Drug Use History: None Reported - Past Family History Mother Family Medical History: No Reported History Medications and Allergies Home Medications Medication Instructions Recorded Confirmed Type Albuterol Inhaler [Ventolin Hfa 2 puff INHALATION RT-QID PRN 05/11/24 07/02/24 History Inhaler] Levothyroxine Sodium [Tirosint] 50 mcg PO QAM 05/11/24 07/02/24 History Pantoprazole [Protonix] 40 mg PO BID 06/29/24 07/02/24 History Famotidine [Pepcid] 40 mg PO HS 07/02/24 07/02/24 History Pulmicort Flexhaler 2 puff INHALATION RT-BID 07/02/24 07/02/24 History busPIRone HCL 10 mg PO DIRECTED 07/02/24 07/02/24 History Allergies Allergy/AdvReac Type Severity Reaction Status Date / Time No Known Allergies Allergy Verified 07/02/24 08:05 Physical Exam Vitals: Vital Signs Temp Pulse Pulse Resp BP BP Pulse Ox 07/02/24 06:56 97.9 F 84 18 106/71 98 07/02/24 02:00 97.5 F L 78 18 93/62 98 07/01/24 23:08 98.0 F 78 17 106/71 96 07/01/24 22:55 58 L 16 116/84 95 07/01/24 18:58 98.2 F 68 14 117/81 100 Intake and Output 07/01/24 07/02/24 07/02/24 22:59 06:59 14:59 Other: # Voids 1 Weight 72.575 kg 72.575 kg General appearance: The patient is alert, oriented, appears in no acute distress. HET: Head is normocephalic and atraumatic. Conjunctiva pink. Sclera anicteric. Neck: Supple without lymphadenopathy. Trachea midline. Heart: Regular. Lungs: Equal expansion, normal respiratory effort. Abdomen: Soft, severe tenderness along the upper abdomen, nondistended. Skin: No rashes. Mild jaundice. Extremities: Normal skin color and turgor. No pedal edema. Neurological: No focal deficits. Alert and oriented x3. Results CBC & Chem 7: 07/02/24 08:01 07/02/24 08:01 Labs: Abnormal Lab Results - Last 24 Hours (Table) 07/01/24 07/01/24 07/01/24 Range/Units 19:34 19:34 19:34 WBC 11.2 H (3.8-10.6) k/uL Neutrophils # 8.8 H (1.3-7.7) k/uL Carbon Dioxide (22-30) mmol/L Glucose 115 H (74-99) mg/dL Total Bilirubin (0.2-1.3) mg/dL AST 157 H (14-36) U/L ALT 57 H (4-34) U/L Total Protein (6.3-8.2) g/dL Urine Appearance Cloudy H (Clear) Urine Protein Trace H (Negative) Urine Blood Moderate H (Negative) Ur Leukocyte Esterase Small H (Negative) Ur Squamous Epith Cells 16 H (0-4) /hpf Urine Bacteria Rare H (None) /hpf Urine Mucus Moderate H (None) /hpf 07/02/24 Range/Units 08:01 WBC (3.8-10.6) k/uL Neutrophils # (1.3-7.7) k/uL Carbon Dioxide 31 H (22-30) mmol/L Glucose (74-99) mg/dL Total Bilirubin 2.6 H (0.2-1.3) mg/dL AST 598 H (14-36) U/L ALT 415 H (4-34) U/L Total Protein 5.7 L (6.3-8.2) g/dL Urine Appearance (Clear) Urine Protein (Negative) Urine Blood (Negative) Ur Leukocyte Esterase (Negative) Ur Squamous Epith Cells (0-4) /hpf Urine Bacteria (None) /hpf Urine Mucus (None) /hpf Comments: Gallbladder ultrasound report suspect small gallstone without ultrasound evidence for acute cholecystitis. Minimally dilated CBD 0.7 cm. Assessment and Plan (1) Elevated LFTs Narrative/Plan: 34-year-old female presenting with abdominal pain and nausea with ultrasound evidence of cholelithiasis, cholecystitis. Increased elevation of LFTs overnight with increase in bilirubin to 2.6 from 0.8 AST 598 from 157 ALT 415 from 57 alkaline phosphatase 55 lipase 100. Concerns for possible choledocholithiasis with mild CBD dilation and LFTs in a cholestatic pattern. Recommend proceeding with ERCP today, however general surgery wants to proceed with cholecystectomy. Will plan for ERCP tomorrow. Avoid Toradol at this time prior to ERCP Current Visit: Yes Status: Acute Code(s): R79.89 - OTHER SPECIFIED ABNORMAL FINDINGS OF BLOOD CHEMISTRY SNOMED Code(s): 038300713 (2) Hyperbilirubinemia Current Visit: Yes Status: Acute Code(s): E80.6 - OTHER DISORDERS OF BILIRUBIN METABOLISM SNOMED Code(s): 69717067 (3) Cholecystitis, acute with cholelithiasis Current Visit: Yes Status: Acute Code(s): K80.00 - CALCULUS OF GALLBLADDER W ACUTE CHOLECYST W/O OBSTRUCTION SNOMED Code(s): 05636305 Plan: 1. Continue symptomatic and supportive care 2. Keep n.p.o. 3. Stat lipase and INR ordered 4. Daily CBC, CMP 5. Pain medication as needed 6. Antiemetics as needed 7. Indomethacin 1 hour prior to ERCP 8. Continue IV antibiotics 9. Recommend ERCP, patient is to undergo cholecystectomy today with general surgery and will plan for ERCP tomorrow. Thank you for this consultation, we will continue to follow. Dr. Estrella Kaur I agree with the dictator's note, documented as a scribe by Jazmine Gandhi.
[2024-07-02] MEDS: DEXAMETHASONE SOD PHOSPHATE 4 MG/ML 1 ML VIAL IVP STA (12:59)
[2024-07-02] MEDS: IPRATROPIUM-ALBUTEROL 3 ML NEB INHALATION STA (13:03)
[2024-07-02] MEDS: SODIUM CHLORIDE 0.9% 1,000 ML IV ONE ×2 (13:10→16:23)
[2024-07-02] MEDS: HEPARIN SODIUM,PORCINE 5,000 UNIT/ML 1 ML VIAL SQ PRN (13:14)
[2024-07-02] MEDS ORDERED: PROPOFOL 10 MG/ML 20 ML VIAL IV ONE (13:39)
[2024-07-02] MEDS ORDERED: HYDROmorphone (PF) 1 MG/ML ONE (13:39)
[2024-07-02] MEDS ORDERED: LIDOCAINE 1% INJ 10MG/ML (20 ML MDV) ONE (13:39)
[2024-07-02] MEDS ORDERED: ROCURONIUM 10 MG/ML (5 ML VIAL) IV ONE (13:39)
[2024-07-02] MEDS ORDERED: MIDAZOLAM 2 MG/2 ML VIAL ONE (13:39)
[2024-07-02] MEDS ORDERED: fentaNYL (PF) 50 MCG/ML 2 ML AMP ONE (13:39)
[2024-07-02] MEDS: SODIUM CHLORIDE 0.9% 100 ML with ceFAZolin 2,000 MG IV ONE (13:55)
[2024-07-02] MEDS: LIDOCAINE 1%-EPI 1:100,000 20 ML VIAL SQ ONE (13:59)
[2024-07-02] MEDS: INDOCYANINE GREEN 25 MG VIAL IV STA (14:14)
[2024-07-02] MEDS: metroNIDAZOLE-NS PMX 500 MG in SALINE 100 100ML.BAG IVPB STA (14:14)
[2024-07-02] MEDS ORDERED: INDOMETHACIN 100 MG SUPPOSITORY RECTAL ONE (14:30)
[2024-07-02] MEDS: IV FLUID CONTINUATION 1,000 ML IV ONE (15:51)
[2024-07-02] MEDS: ONDANSETRON 4 MG/2 ML VIAL IVP SCH (16:29)
[2024-07-02] MEDS: ACETAMINOPHEN IV (For NPO) 1,000 MG in EMPTY BAG 1 BAG IVPB SCH (18:44)
[2024-07-02] MEDS: SIMETHICONE 80 MG CHEWABLE PO SCH (18:46)
--- NOTE | 2024-07-02 19:41 | P.OP ---
Date of Procedure: 07/02/24 Description of Procedure: SURGEON: MARKEL EVERETT MD PREOPERATIVE DIAGNOSES: 1. Acute cholecystitis with choledocholithiasis 2. Acute liver hepatitis 3. Hyperbilirubinemia 4. Gastroesophageal reflux disease 5. Tachycardia 6. Chronic obstructive pulmonary disease 7. Hypothyroidism 8. Depressive disorder 9. Generalized anxiety disorder 10. Postop nausea vomiting POSTOPERATIVE DIAGNOSES: 1. Acute cholecystitis with choledocholithiasis 2. Acute liver hepatitis 3. Hyperbilirubinemia 4. Gastroesophageal reflux disease 5. Tachycardia 6. Chronic obstructive pulmonary disease 7. Hypothyroidism 8. Depressive disorder 9. Generalized anxiety disorder 10. Postop nausea vomiting 11. Fatty liver disease OPERATION: Robotic-assisted da Torey Xi laparoscopic cholecystectomy, multiport with FIREFLY ESTIMATED BLOOD LOSS: 20 mL. SPECIMENS REMOVED: Gallbladder. COMPLICATIONS: None. OPERATIVE FINDINGS: 1. Moderate gallbladder wall edema including common bile duct edema 2. Mild fatty liver disease INDICATIONS: The patient is a 34-year-old female who presents with symptomatic gallstones causing acute cholecystitis. This morning, blood results demonstrated moderately acute elevated liver enzymes and bilirubin consistent with choledocholithiasis. Arrangement for ERCP was performed with GI team. Robotic assisted laparoscopic approach was described. Benefits and risks of the procedure including but not limited to bleeding, infection, injury to the biliary tree was described. Informed consent was obtained. DESCRIPTION OF PROCEDURE: Patient was brought to the operating room, placed in supine position. After general induction, the abdomen had been prepped and draped in standard sterile fashion. The robotic da Torey XI system was primed. After a timeout protocol was performed, the patient had been prepped and draped in standard sterile fashion. The patient was injected with indocyanine green. A 5 mm 0 degrees laparoscopic trocar entry was performed along the left upper quadrant. The abdomen insufflated to 15 mmHg pressure which was tolerated well. Diagnostic laparoscopy demonstrated no injury to bowel viscera or mesentery. The liver surface was remarkable for fatty liver disease. Next, two 8 mm robotic ports were placed along the right upper abdomen. The camera 8-mm port was maintained along the epigastrium. Another 8 mm port was placed along the left upper abdominal wall after exchanging the 5 mm port. Please note that the ports were placed at least 10 to 15 cm away from the target anatomy of the gallbladder. Bleeding was identified along the skin incision at the left upper quadrant for approximately 20 cc. The robot was docked along the left lateral abdomen. The patient was repositioned in reverse Trendelenburg position. Using a grasper for arm 3, a grasper for arm 4, including hook cautery for arm 1, the robotic system was docked and primed as described. Instruments were interchanged by the instruction assistant principal including hook cautery, Bovie cautery and clip appliers. I had sat at the console. Moderate edema was identified involving the gallbladder wall including the common bile duct. Dome down technique was performed starting from the gallbladder fundus toward the infundibulum along the hepatic fossa using hook cautery. Next attention was brought to the infundibulum and cystic structures. The infundibulum and cystic duct were dissected free from surrounding tissues. The cystic duct was isolated. The cystic duct had mild dilation. FIREFLY was used to identify the cystic artery and cystic structures. A critical view of safety was obtained. Large PLASTIC clips were used throughout the entire case. Using a clip tank assembler, 3 clips were placed at the junction of the infundibulum and cystic duct. The cystic duct was divided between clips. Next, the cystic artery was clipped and cauterized. A total of 3 clips were left at the hepatic fossa. Electro-Bovie cautery was used to remove the gallbladder from the hepatic fossa. Hemostasis was checked and found to be adequate. The robot was undocked. I re-scrubbed into the case. Using a 10 mm Endo Catch bag via the left upper quadrant incision, the specimen was removed from the abdominal cavity. All pneumoperitoneum instruments were evacuated from the abdominal cavity. The incisions were reapproximated using 4-0 Monocryl in an interrupted subcuticular fashion. Fascial defects were less than 8 mm in size. Please note along the trocar sites, local anesthetic was placed as a field block prior to insertion of all instruments. Liquid glue was applied to the skin. At the end of the procedure needle, sponge, and instrument count had been verified correct by the operating room surgical technologist. The patient was transferred to postanesthesia care unit in stable condition.
[2024-07-02] MEDS ORDERED: NALOXONE 0.4 MG/ML 1 ML VIAL IV PRN (21:11)
[2024-07-02] MEDS ORDERED: ALBUTEROL NEBULIZED 2.5 MG/3 ML INHALATION PRN (21:13)
[2024-07-02] MEDS: HEPARIN SODIUM,PORCINE 5,000 UNIT/ML 1 ML VIAL SQ SCH (22:12)
[2024-07-02] MEDS: DEXAMETHASONE SOD PHOSPHATE 10 MG/ML 1 ML VIAL IVP STA (22:19)
[2024-07-02] MEDS: METOCLOPRAMIDE 5 MG/ML 2 ML VIAL IVP SCH (22:19)
[2024-07-02] MEDS: fentaNYL PCA 500 MCG/50 ML BAG IV SCH (22:20)
[2024-07-02] MEDS: MAGNESIUM SULFATE-D5W PMX 1 GM in DEXTROSE/WATER 1 100ML.BAG IVPB SCH (23:36)
[2024-07-03] MEDS: LEVOTHYROXINE 50 MCG TAB PO SCH (06:14)
[2024-07-03 09:17] LABS: Basophils # (A) 0.01 X 10*3/uL (0.00-0.10); Basophils % (A) 0.2 %; Eosinophils # (A) 0 X 10*3/uL (0.04-0.35); Eosinophils % (A) 0 %; HCT 31.3 % (37.2-46.3); HGB 10.6 g/dL (12.0-15.0); Lymphocytes # (A) 1.22 X 10*3/uL (0.90-5.00); Lymphocytes % (A) 22.3 %; MCH 27.7 pg (27.0-32.0); MCHC 33.9 g/dL (32.0-37.0); MCV 81.7 FL (80.0-97.0); Mean Platelet Volume 10.3 FL (9.5-12.2); Monocytes # (A) 0.38 X 10*3/uL (0.20-1.00); Monocytes % (A) 6.9 %; NRBC Per 100 WBC 0 X 10*3/uL (0.00-0.01); Neutrophils # (A) 3.85 X 10*3/uL (1.80-7.70); Neutrophils % (A) 70.2 %; Platelet Count 213 X 10*3/uL (140-440); RBC 3.83 X 10*6/uL (4.10-5.20); RDW 13.4 % (11.5-14.5); WBC 5.48 X 10*3/uL (4.50-10.00)
[2024-07-03] MEDS: FLUTICASONE 110 MCG INHALER INHALATION SCH (09:21)
[2024-07-03 09:37] LABS: ALT 384 U/L (4-34); AST 345 U/L (14-36); African American GFR (CKD) >90 (>60 ml/min/1.73 sqM); Albumin 3.6 g/dL (3.5-5.0); Albumin/Globulin Ratio 1.6; Alkaline Phosphatase 65 U/L (38-126); Anion Gap 7 mmol/L; Blood Urea Nitrogen 5 mg/dL (7-17); Calcium 9.1 mg/dL (8.4-10.2); Carbon Dioxide 24 mmol/L (22-30); Chloride 107 mmol/L (98-107); Globulin 2.2 g/dL; Glucose 86 mg/dL (74-99); Lipase 53 U/L (23-300); Non-African American GFR(CKD) >90 (>60 ml/min/1.73 sqM); Potassium 3.7 mmol/L (3.5-5.1); Sodium 138 mmol/L (137-145); Total Bilirubin 3.9 mg/dL (0.2-1.3); Total Protein 5.8 g/dL (6.3-8.2)
--- NOTE | 2024-07-03 11:17 | P.PN ---
Subjective Progress Note Date: 07/03/24 CHIEF COMPLAINT: Cholecystitis with choledocholithiasis HISTORY OF PRESENT ILLNESS: Patient is postop day #1 status post robotic laparoscopic cholecystectomy. Patient continues to have epigastric abdominal pain. She wrote report some pain at incision sites. She did have vomiting last night that has resolved. She is scheduled for an ERCP today. Afebrile. WBC is 5.48 Hgb 10.6 platelets 213 total bilirubin is up from 2.6-3.9 AST 5 98-3 45 ALT 415-384 lipase 53 PHYSICAL EXAM: VITAL SIGNS: Reviewed GENERAL: Well-developed in no acute distress. HEENT: Sclera icterus present extraocular movements grossly intact. Moist buccal mucosa. Head is atraumatic, normocephalic. Hears conversational speech. No nasal drainage. NECK: Supple without lymphadenopathy. CHEST: Non-labored respirations and equal bilateral excursions. CARDIOVASCULAR: Palpable 2+ radial pulses. ABDOMEN: Soft. Nondistended. Tender epigastric area. Incision sites clean dry and intact MUSCULOSKELETAL: No clubbing or cyanosis. NEUROLOGIC: No focal or lateralizing signs. Cranial nerves II through XII grossly intact. PSYCH: Appropriate affect. Alert and oriented to person, place and time. SKIN: Well perfused. Good skin turgor. ASSESSMENT: 1. Acute cholecystitis with choledocholithiasis 2. Acute liver hepatitis 3. Hyperbilirubinemia 4. Gastroesophageal reflux disease 5. Tachycardia 6. Chronic obstructive pulmonary disease 7. Hypothyroidism 8. Depressive disorder 9. Generalized anxiety disorder 10. Postop nausea vomiting 11. Fatty liver disease PLAN: -Patient scheduled for ERCP today with GI service -Continue pain management -Continue antibiotics -Continue IV fluids -DVT prophylaxis subcu heparin Physician Radio Repairer note has been reviewed by physician. Signing provider agrees with the documented findings, assessment, and plan of care. Additional documentation below CHIEF COMPLAINT: Acute cholecystitis with choledocholithiasis HISTORY OF PRESENT ILLNESS: The patient is a 34-year-old female admitted for complicated symptomatic cholelithiasis with subsequent choledocholithiasis. Patient is status post cholecystectomy, 07/02/2024. This morning, she reports improvement of her right upper quadrant abdominal pain however she has increasing back and epigastric pain. She had severe nausea overnight. Multiple antiemetics including Zofran, Compazine, scopolamine, Reglan and start of fentanyl were given to her. She reports her nausea has improved this morning. She reports appropriate incisional pain. ROS: No fevers or chills. No new chest pain. No productive sputum PHYSICAL EXAM: VITAL SIGNS: Reviewed CONSTITUTIONAL: Well developed and in no acute distress. EYES: Conjuctivae with sclera icterus. Extraocular movements grossly intact. HEAD, EARS, NOSE, THROAT: Moist buccal mucosa. Head is atraumatic, normocephalic. Hears conversational speech. No nasal drainage. RESPIRATORY: Non-labored respirations and equal bilateral excursions. CARDIOVASCULAR: Palpable 2+ radial pulses. ABDOMEN: Incisions clean dry intact. No peritonitis. MUSCULOSKELETAL: No gross deformity of the lower extremities noted. No clubbing. No cyanosis. SKIN: Good skin turgor. Well perfused. NEUROLOGIC: Cranial nerves II through XII grossly intact. No focal or lateralizing signs. PSYCH: Appropriate affect. Alert and oriented to person, place and time. CLINICAL LABS: Reviewed. Moderate elevation of total bilirubin from 0.8-3.9 on admission. LFTs trending downward from yesterday. ASSESSMENT: 1. Acute cholecystitis due to gallstones with choledocholithiasis 2. Hyperbilirubinemia 3. Codeine intolerance with nausea and vomiting PLAN: 1. I personally discussed findings with GI team with moderate elevation of total bilirubin and clinical exam findings despite surgical intervention. Do request assessment for ERCP. 2. Inpatient hospitalization due to complicated cholecystitis with choledocholithiasis 3. Continue antibiotics 4. Will add to allergies codeine intolerance due to intractable nausea and vomiting 5. 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 - Vital Signs Vital signs: Vital Signs Temp 98.4 F 07/03/24 07:26 Pulse 61 07/03/24 09:14 Resp 17 07/03/24 09:14 BP 107/71 07/03/24 07:26 Pulse Ox 100 07/03/24 07:26 FiO2 Intake & Output 07/02/24 07/03/24 07/03/24 18:59 06:59 18:59 Intake Total 1050 200 Output Total 20 Balance 1030 200 Intake: IV 1050 Oral 200 Output: Estimated Blood Loss 20 Other: Voiding Method Toilet Toilet Toilet # Voids 2 2 - Labs CBC & Chem 7: 07/03/24 05:48 07/03/24 05:48 Labs: Abnormal Lab Results - Last 24 Hours (Table) 07/03/24 07/03/24 Range/Units 05:48 05:48 RBC 3.83 L (4.10-5.20) X 10*6/uL Hgb 10.6 L (12.0-15.0) g/dL Hct 31.3 L (37.2-46.3) % Eosinophils # 0 L (0.04-0.35) X 10*3/uL BUN 5 L (7-17) mg/dL Total Bilirubin 3.9 H (0.2-1.3) mg/dL AST 345 H (14-36) U/L ALT 384 H (4-34) U/L Total Protein 5.8 L (6.3-8.2) g/dL
[2024-07-03] MEDS: INDOMETHACIN 100 MG SUPPOSITORY RECTAL ONE (15:06)
[2024-07-03] MEDS ORDERED: ESMOLOL 100 MG/10 ML VIAL ONE (16:10)
[2024-07-03] MEDS ORDERED: PROPOFOL 10 MG/ML 20 ML VIAL IV ONE (16:10)
[2024-07-03] MEDS ORDERED: GLYCOPYRROLATE 0.2 MG/ML 2 ML VIAL ONE (16:10)
[2024-07-03] MEDS ORDERED: MIDAZOLAM 2 MG/2 ML VIAL ONE (16:10)
[2024-07-03] MEDS ORDERED: diphenhydrAMINE 50 MG/ML 1 ML VIAL ONE (16:10)
[2024-07-03] MEDS ORDERED: LIDOCAINE 1% INJ 10MG/ML (20 ML MDV) ONE (16:10)
[2024-07-03] MEDS: IOPAMIDOL-300 30ML BTL INJ ONE (16:22)
[2024-07-03] MEDS: SODIUM CHLORIDE 0.9% 1,000 ML IV ONE (16:42)
--- NOTE | 2024-07-03 16:47 | P.PCN ---
Date of Procedure: 07/03/24 Procedure(s) Performed: Brief history: Patient is a year-old pleasant lady scheduled for an ERCP as part of evaluation of abdominal pain and elevated serum transaminases for the last 2 days' duration. She was admitted to hospital 2 days ago and initially had LFTs were normal. She underwent laparoscopic cholecystectomy yesterday and just prior to the surgery was noted to have elevated LFTs and slightly elevated bilirubin at 2.8. This morning LFTs got worse with a bilirubin of 3.5 and scheduled she is called for an ERCP for possible CBD stone Procedure performed: ERCP with biliary sphincterotomy and balloon sweep Preoperative diagnoses: Elevated LFTs/jaundice/rule out CBD stone IV sedation per anesthesia: Procedure: After informed consent was obtained from the patient and after the risks benefits and complications including bleeding perforation and pancreatitis explained in detail the patient was brought into the endoscopy unit. The patient was placed in prone position and IV conscious sedation was administered by anesthesia under continuous monitoring. The Olympus side-viewing duode noscope was then inserted into the mouth and esophagus intubated without any difficulty. The scope was gradually advanced into the stomach and duodenum. The major papilla was identified without any difficulty. Initial cannulation resulted in opacification of the common bile duct and upon injection of the dye it appeared slightly dilated measuring about 6 to 7 mm in diameter. There was a faint filling defect noted in the distal CBD. At this time we will proceed with biliary sphincterotomy after the catheter was exchanged over a guidewire and a sphincterotomy was performed 11 o'clock position and was extended to 1 cm. Following this an 11.5 mm balloon was passed into the CBD and gently inflated and withdrawn. I did not see any stone exiting the ampulla. I repeated this maneuver 3-4 times and after this an occlusion cholangiogram was performed and I did not see any other filling defects. The pancreatic duct was intentionally not cannulated during the entire procedure. Patient tolerated the procedure well. Impression: Common bile duct slightly dilated measuring 6 to 7 mm in diameter with a faint filling defect in the distal CBD s/p biliary sphincterotomy and balloon sweep bu t no stone seen exiting the ampulla The pancreatic intentionally not cannulated Recommendations: The findings of this examination were discussed with the patient . She will be on clear liquid diet today. Repeat LFTs tomorrow. Continue broad-spectrum antibiotics.
--- NOTE | 2024-07-03 20:03 | FL ---
Fluoroscopy INDICATION: Biliary evaluation FINDINGS: Fluoroscopy time: 44.7 seconds. Total dose area product (DAP) in uGy*m?, mGy*cm? (or similar): 2.0818 Images obtained: 6. No persistent filling defects are evident. Suspicious dilated bile ducts not identified. IMPRESSION: 1. Documentation of fluoroscopy. [facility] , 07/03/2024 8:00 PM
[2024-07-04 09:49] LABS: Lipase 77 U/L (23-300)
[2024-07-04 10:54] LABS: ALT 322 U/L (4-34); AST 204 U/L (14-36); African American GFR (CKD) >90 (>60 ml/min/1.73 sqM); Albumin 3.2 g/dL (3.5-5.0); Albumin/Globulin Ratio 1.5; Alkaline Phosphatase 58 U/L (38-126); Anion Gap 8 mmol/L; Blood Urea Nitrogen 6 mg/dL (7-17); Calcium 8.8 mg/dL (8.4-10.2); Carbon Dioxide 22 mmol/L (22-30); Chloride 109 mmol/L (98-107); Globulin 2.2 g/dL; Glucose 86 mg/dL (74-99); Non-African American GFR(CKD) >90 (>60 ml/min/1.73 sqM); Potassium 3.6 mmol/L (3.5-5.1); Sodium 139 mmol/L (137-145); Total Bilirubin 3.2 mg/dL (0.2-1.3); Total Protein 5.4 g/dL (6.3-8.2)
--- NOTE | 2024-07-04 11:00 | P.PN ---
Subjective Progress Note Date: 07/04/24 Principal diagnosis: Cholecystitis Patient says her pain is better today. 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 Tolerating liquids. Labs are improved mildly. Lipase is normal. No fevers. Objective - Vital Signs Vital signs: Vital Signs Temp 98.0 F 07/04/24 07:00 Pulse 70 07/04/24 07:00 Resp 16 07/04/24 07:00 BP 115/71 07/04/24 07:00 Pulse Ox 98 07/04/24 07:00 FiO2 Intake & Output 07/03/24 07/04/24 07/04/24 18:59 06:59 18:59 Intake Total 500 240 Balance 500 240 Intake: IV 500 Oral 240 Other: Voiding Method Toilet Toilet - Exam Abdomen: Soft, nondistended, incisions clean and dry, mild tenderness - Labs CBC & Chem 7: 07/03/24 05:48 07/04/24 09:22 Labs: Abnormal Lab Results - Last 24 Hours (Table) 07/04/24 Range/Units 09:22 Chloride 109 H (98-107) mmol/L BUN 6 L (7-17) mg/dL Total Bilirubin 3.2 H (0.2-1.3) mg/dL AST 204 H (14-36) U/L ALT 322 H (4-34) U/L Total Protein 5.4 L (6.3-8.2) g/dL Albumin 3.2 L (3.5-5.0) g/dL Assessment and Plan (1) Cholecystitis, acute with cholelithiasis Narrative/Plan: 34-year-old female with acute cholecystitis and associated choledocholithiasis. Doing well after ERCP yesterday. Labs are improved. Advance to low fat diet. Consider discharge later today if doing well. Current Visit: Yes Status: Acute Code(s): K80.00 - CALCULUS OF GALLBLADDER W ACUTE CHOLECYST W/O OBSTRUCTION SNOMED Code(s): 20277961
[2024-07-04] MEDS: ACETAMINOPHEN TAB 325 MG TAB PO PRN (14:44)
[2024-07-04] MEDS: PROCHLORPERAZINE INJ 10 MG/2 ML VIAL IVP PRN (14:48)
[2024-07-04] MEDS: KETOROLAC 15 MG/ML 1 ML VIAL IVP SCH (17:05)
[2024-07-05 09:48] VITALS: BP 124/84; PULSE 89; RESP 16; TEMP 98.1
--- NOTE | 2024-07-05 10:38 | P.DS ---
Providers Date of admission: 07/01/24 22:08 Expected date of discharge: 07/05/24 Attending physician: Meagan Vaughn Consults: 07/02/24 10:01 Consult Physician Routine Consulting Provider: Shoshana Kaur Consult Reason/Comments: ERCP Do you want consulting provider notified?: Yes 07/02/24 11:25 Consult Physician Routine Consulting Provider: [facility] Consult Reason/Comments: [facility] Do you want consulting provider notified?: Yes Primary care physician: Jose Cruz Cronin - Discharge Diagnosis(es) (1) Cholecystitis, acute with cholelithiasis 34-year-old female admitted with acute cholecystitis and choledocholithiasis. Underwent laparoscopic cholecystectomy which went well. Following day underwent ERCP which suggested a small filling defect. Yesterday patient was still recovering from the ERCP with mild nausea and discomforts. Feels well today. Tolerating diet. She would like to go home. Will plan discharge. Follow-up with Dr. Vaughn as outpatient. She will discuss at that visit whether repeat labs are necessary. Current Visit: Yes Status: Acute Patient Condition at Discharge: Fair Plan - Discharge Summary Discharge Rx Participant: Yes New Discharge Prescriptions: No Action busPIRone HCL 10 mg PO DIRECTED Famotidine [Pepcid] 40 mg PO HS Albuterol Inhaler [Ventolin Hfa Inhaler] 2 puff INHALATION RT-QID PRN PRN Reason: Shortness Of Breath Or Wheezing Levothyroxine Sodium [Tirosint] 50 mcg PO QAM Pantoprazole [Protonix] 40 mg PO BID Pulmicort Flexhaler 2 puff INHALATION RT-BID Discharge Medication List Albuterol Inhaler [Ventolin Hfa Inhaler] 2 puff INHALATION RT-QID PRN 05/11/24 [History] Levothyroxine Sodium [Tirosint] 50 mcg PO QAM 05/11/24 [History] Pantoprazole [Protonix] 40 mg PO BID 06/29/24 [History] Famotidine [Pepcid] 40 mg PO HS 07/02/24 [History] Pulmicort Flexhaler 2 puff INHALATION RT-BID 07/02/24 [History] busPIRone HCL 10 mg PO DIRECTED 07/02/24 [History] Follow up Appointment(s)/Referral(s): Meagan Vaughn MD [STAFF PHYSICIAN] - 07/21/24 Jose Cruz Cronin DO [Primary Care Provider] - 1-2 days
== END 2024-07-05 11:54 | disposition home or self-care (01) | DRG 418 ==
LOC: EC 18:41 → 4SSUR 22:07 → OBSVTOIN 22:08 → 4SSUR 22:30
PROVIDERS: ADMIT Surgery Plastic and Reconstructive Surgery; ATTEND Surgery Plastic and Reconstructive Surgery
PROC: 0FT44ZZ Resection of Gallbladder, Percutaneous Endoscopic Approach (ICD-10-PCS; principal; 2024-07-02 11:20)
PROC: 8E0W4CZ Robotic Assisted Procedure of Trunk Region, Percutaneous Endoscopic Approach (ICD-10-PCS; principal; 2024-07-02 11:20)
PROC: BF53200 Other Imaging of Gallbladder and Bile Ducts using Fluorescing Agent, Indocyanine Green Dye, Intraoperative (ICD-10-PCS; principal; 2024-07-02 11:20)
PROC: 0F798ZZ Dilation of Common Bile Duct, Via Natural or Artificial Opening Endoscopic (ICD-10-PCS; 2024-07-03)
DX: K80.00 Calculus of gallbladder with acute cholecystitis without obstruction (principal); K80.42 Calculus of bile duct with acute cholecystitis without obstruction; F41.1 Generalized anxiety disorder; E03.9 Hypothyroidism, unspecified; F32.A Depression, unspecified; J44.89 Other specified chronic obstructive pulmonary disease; R00.0 Tachycardia, unspecified; K21.9 Gastro-esophageal reflux disease without esophagitis; K75.9 Inflammatory liver disease, unspecified; K76.0 Fatty (change of) liver, not elsewhere classified; Z79.890 Hormone replacement therapy; Z28.21 Immunization not carried out because of patient refusal; Z87.01 Personal history of pneumonia (recurrent); Z20.822 Contact with and (suspected) exposure to COVID-19; Z79.51 Long term (current) use of inhaled steroids
CPT/HCPCS: 36415; 43262; 74330; 76705; 80053; 81001; 81025; 83605; 83690; 85025; 85610; 87636; 88304; 93005; 94640; 96361; 96374; 96375; 99285